=== PATIENT | male | born 1970 | race Caucasian/White ===

== ENCOUNTER 2022-08-16 09:49 | Day surgery (SDC) | payer OTHER ==
--- NOTE | 2022-08-16 08:17 | HP ---
DATE OF SURGERY: 08/16/2022 HISTORY OF PRESENT ILLNESS: The patient is a 52-year-old with no bloody stools. No change in bowel habits. No new pain. Family history negative for colon cancer. No prior colonoscopy. He is in need of a screening colonoscopy. PAST MEDICAL HISTORY: Hyperlipidemia, diabetes mellitus type II, hypertension. PAST SURGICAL HISTORY: AV fistula in the past. MEDICATIONS: Lisinopril, atorvastatin, Prilosec, Ozempic. ALLERGIES: NKDA. FAMILY HISTORY: Cancer, diabetes but negative for colon cancer. SOCIAL HISTORY: Former smoker. 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 REVIEW OF SYSTEMS: Fourteen systems reviewed. No chest pain or palpitations. Other systems negative or noncontributory as above and per preadmission questionnaire. PHYSICAL EXAMINATION: Height 5'10". BMI 27.7. GENERAL: No acute distress. HEENT: Sclerae nonicteric. EOMI. Oral mucous membranes moist. NECK: No JVD. CHEST: Equal excursion, nonlabored breathing. CVS: Regular rate and rhythm. ABDOMEN: Soft. No peritoneal signs. EXTREMITIES: No significant edema. NEURO: Alert, oriented, moving extremities symmetrically. RECTAL: Deferred timed to endoscopy exam. PSYCH: Appropriate mood and affect. SKIN: Dry. IMPRESSION: A 52-year-old in need of screening colonoscopy. I feel he is a candidate. Shown the risk sheet, explained the procedure in detail including but not limited to risk of bleeding or infection, risk of bowel injury or perforation, risk of missed or nondiagnosis or incomplete exam possibly requiring barium enema, other studies or procedures, general risk of anesthesia or sedation, risk of bowel prep but not limited to, consent obtained. Otherwise continue home medications for his hypertension, diabetes and hyperlipidemia. Will proceed with outpatient screening colonoscopy under MAC anesthesia.
[2022-08-16] MEDS ORDERED: Lactated Ringers 1,000 ML IV SCH (11:00)
[2022-08-16] MEDS ORDERED: DIPRIVAN 200 MG/20 ML IV ONE ×2 (12:29→12:37)
[2022-08-16] MEDS ORDERED: Xylocaine-Mpf 2% 5 Ml Vial ONE (12:29)
[2022-08-16] MEDS ORDERED: Versed 2 MG/2 ML Injection ONE (12:29)
[2022-08-16 13:47] VITALS: BP 116/72; PULSE 69; O2SAT 95
--- NOTE | 2022-08-17 09:35 | OP ---
SURGERY DATE/TIME: 08/16/2022 1230 PREOPERATIVE DIAGNOSIS: Need for screening colonoscopy. POSTOPERATIVE DIAGNOSES: 1) ASA Class II. 2) Small early polyp versus hyperplastic lesion transverse colon and sigmoid colon. 3) Fair bowel prep. 4) Withdrawal time approximately nine minutes. PROCEDURES: 1) Colonoscopy to cecum. 2) Hot biopsy polypectomy small early polyp versus hyperplastic lesion transverse colon x1 and sigmoid colon x2. SURGEON: Dr. Ehsan Hernandez. ANESTHESIA: MAC. ESTIMATED BLOOD LOSS: Minimal. INDICATIONS: As noted above. Risks and benefits explained in detail but not limited to and consent obtained. DESCRIPTION OF PROCEDURE AND FINDINGS: The patient is taken to the endoscopy room. MAC anesthesia induced. After official time out and no disagreement with planned procedure, digital rectal exam did not reveal any rectal masses. Video colonoscope inserted and passed up through the sigmoid, descending, transverse and ascending colon around to the cecum. Appendiceal orifice and valve well visualized and photo documented. Prep overall is fair with some liquidy and little bit of semisolid stool throughout the colon just slightly limiting the exam for small lesions. The scope is carefully withdrawn over the next nine minutes. ASA Class II. Suctioning and irrigating out the liquidy stool as well as possible. There were no signs of any other large polyps, masses or obstructing lesion. There was a small early polyp versus hyperplastic lesion in the transverse colon removed with hot biopsy polypectomy. Good hemostasis noted. The scope pulled around. In the sigmoid colon there were two small early polyps versus hyperplastic lesion removed with hot biopsy forceps. Good hemostasis noted. There were no signs of any large polyps, masses or obstructing lesions. Prep overall is fair. The patient tolerated the procedure well. There were no immediate complications. Findings discussed with the family out in the waiting area. I will see him back in the office next week to go over the results.
== END 2022-08-16 13:45 | disposition home or self-care (01) ==
LOC: SDC 09:49
PROVIDERS: ATTEND Surgery
DX: Z12.11 Encounter for screening for malignant neoplasm of colon (principal); K63.5 Polyp of colon; E11.9 Type 2 diabetes mellitus without complications
CPT/HCPCS: 82947; J2250; J2704